=== PATIENT | male | born 2000 | race American Indian/Alaskan Native ===

== ENCOUNTER 2024-05-30 09:58 | Outpatient (CLI) | payer OTHER, SELFPAY ==
--- NOTE | 2024-05-30 12:30 | DI.RAD_ITS ---
Exam(s) XR WRIST RT COMPLETE EXAM: XR WRIST RT COMPLETE CLINICAL HISTORY: eval fx, R WRIST PAIN. M25.531. TECHNIQUE: 2D digital imaging was performed. COMPARISON: No exams were available for comparison FINDINGS: 3 views There is no evidence of fracture or dislocation. There is mild negative ulnar variance. There is no abnormal widening of the scapholunate distance and no scaphoid fracture. Bone density normal. No o sseous lesions nor erosions. IMPRESSION: No acute osseous findings in the wrist. Mild negative ulnar variance incidentally noted. DATA REPOSITORY: RADIATION DOSE DELIVERED:
== END 2024-05-30 10:18 ==
LOC: DI 10-10 10:00
PROVIDERS: Visit Provider Nurse Practitioner Family
DX: M25.531 Pain in right wrist (principal)
CPT/HCPCS: 73110